=== PATIENT | female | born 1980 | race Caucasian/White ===

== ENCOUNTER 2016-07-03 10:22 | Emergency (ER) | payer OTHER ==
[~2016-07-03] VITALS: Ht 162.6 cm; Wt 85.5 kg
[~2016-07-03 10:22] MED LIST: CLONIDINE; DIABETA,MICRON2.5 MG PO; DIABETA2.5 MG PO; GLIMEPIRIDE1 MG PO; GLUCOPHAGE500 MG PO; KEFLEX500 MG PO; LEVAQUIN750 MG PO; METFORMIN; METFORMIN HCL500 MG PO; PERCOCET 5/31 TABLET PO; PHENERGAN-CODE120 ML PO; PRILOSEC40 MG PO; ROBITUSSIN100 MG/5 M PO; ZESTRIL5 MG PO; ZOFRAN ODT4 MG PO
[2016-07-03 11:07] LABS: HEMATOCRIT 42.5 % (36.0-46.0); MCH 27.8 PG (29.0-34.0); MCHC 34.4 G/DL (30.0-36.0); MCV 80.8 FL (83-99); PLATELET COUNT 247 K/uL (156-360); RBC DIS.WIDTH-CV 11.7 % (11.8-14.6); RBC DIS.WIDTH-SD 33.9 % (39-53); RED BLOOD COUNT 5.26 M/uL (3.80-5.20); WHITE BLOOD COUNT 11.6 K/uL (4.1-10.2)
[2016-07-03 11:19] LABS: CHLORIDE 100 mEq/L (99-109); POTASSIUM 4.1 mEq/L (3.7-5.4); SODIUM 134 mEq/L (136-147)
[2016-07-03 11:22] LABS: ANION GAP 13 MEQ/L (2-14)
[2016-07-03 11:23] LABS: TOTAL BILIRUBIN 0.9 mg/dL (0.0-1.0)
[2016-07-03 11:24] LABS: ALKALINE PHOSPHATASE 66 IU/L (3-129)
[2016-07-03 11:25] LABS: GFR ESTIMATE (CALCULATED) > 59 mL/min/; GLUCOSE 551 mg/dL (70-99)
[2016-07-03 11:26] LABS: UREA NITROGEN (BUN) 14 mg/dL (9-23)
[2016-07-03 11:28] LABS: TROP-I INTERPRETATION NEGATIVE; TROPONIN-I < 0.01 ng/mL (0.0-0.30)
[2016-07-03 12:13] LABS: D-DIMER ELISA 0.41 mg/L FEU (< 0.57)
[2016-07-03 13:50] LABS: POINT-OF-CARE METER ID UU14100415
[2016-07-03 14:22] LABS: TROP-I INTERPRETATION NEGATIVE; TROPONIN-I < 0.01 ng/mL (0.0-0.30)
[2016-07-03 15:23] VITALS: BP 160/98
== END 2016-07-03 15:30 | disposition home or self-care (01) ==
LOC: EME 10:22
PROVIDERS: Emergency Medicine
DX: R07.89 Other chest pain (principal); E11.65 Type 2 diabetes mellitus with hyperglycemia; E78.5 Hyperlipidemia, unspecified; I10 Essential (primary) hypertension; Z79.84 Long term (current) use of oral hypoglycemic drugs
CPT/HCPCS: 71020; 80053; 82948; 84484; 85027; 85379; 93005; 99281; 99285; J7030

== ENCOUNTER 2016-08-15 12:52 | Emergency (ER) | payer SELFPAY ==
[~2016-08-15] VITALS: Ht 162.6 cm; Wt 84.9 kg
[2016-08-15 14:07] LABS: HEMATOCRIT 43.5 % (36.0-46.0); MCH 28.5 PG (29.0-34.0); MCV 83.7 FL (83-99); MEAN PLAT.VOLUME 10.4 uM^3 (9.5-12.4); PLATELET COUNT 288 K/uL (156-360); RBC DIS.WIDTH-CV 12.7 % (11.8-14.6); RBC DIS.WIDTH-SD 38.4 % (39-53); WHITE BLOOD COUNT 13.7 K/uL (4.1-10.2)
[2016-08-15 14:15] LABS: CHLORIDE 98 mEq/L (99-109); POTASSIUM 4.3 mEq/L (3.7-5.4); SODIUM 131 mEq/L (136-147)
[2016-08-15 14:19] LABS: ANION GAP 14 MEQ/L (2-14)
[2016-08-15 14:20] LABS: SERUM ETHYL ALCOHOL < 10 mg/dL
[2016-08-15 14:21] LABS: GFR ESTIMATE (CALCULATED) > 59 mL/min/
[2016-08-15 14:22] LABS: GLUCOSE 485 mg/dL (70-99); UREA NITROGEN (BUN) 16 mg/dL (9-23)
[2016-08-15 14:30] LABS: QUANTITATIVE HCG < 4.0 MIU/ML
[2016-08-15 16:53] VITALS: BP 138/100
[2016-08-15 16:56] LABS: POINT-OF-CARE METER ID UU13113702
[2016-08-15 17:03] LABS: AMPHETAMINE NEGATIVE (500 ng/mL); BARBITURATES NEGATIVE (200 ng/mL); BENZODIAZEPINES NEGATIVE (150 ng/mL); COCAINE NEGATIVE (150 ng/mL); INTERNAL CONTROLS VALID? YES; METHADONE NEGATIVE (200 ng/mL); METHAMPHETAMINE NEGATIVE (500 ng/mL); OPIATES (MORPHINE) NEGATIVE (100 ng/mL); OXYCODONE NEGATIVE (100 ng/mL); PHENCYCLIDINE NEGATIVE (25 ng/mL); PROPOXYPHENE NEGATIVE (300 ng/mL); THC CANNABINOIDS NEGATIVE (50 ng/mL); TRICYCLIC ANTIDEPRESSANTS NEGATIVE (300 ng/mL)
== END 2016-08-15 16:54 | disposition home or self-care (01) ==
LOC: EME 12:52
PROVIDERS: Emergency Medicine
DX: F32.9 Major depressive disorder, single episode, unspecified (principal); E11.65 Type 2 diabetes mellitus with hyperglycemia; F43.23 Adjustment disorder with mixed anxiety and depressed mood; Z91.14 Patient's other noncompliance with medication regimen; Z87.891 Personal history of nicotine dependence
CPT/HCPCS: 80048; 82948; 84702; 85027; 90839; 99281; 99285; G0480; J7030